=== PATIENT | female | born 2000 | race Caucasian/White ===

== ENCOUNTER 2023-09-06 17:07 | Outpatient (CLI) | payer OTHER, SELFPAY ==
--- NOTE | ~2023-09-06 | US_ITS ---
LIMITED OBSTETRIC ULTRASOUND/BIOPHYSICAL PROFILE Ordering provider: Diaz Field MD History: . LUIZ/leaking . Comparison: None. FINDINGS/impression: PRESENTATION: Vertex. PLACENTAL LOCATION: Fundal anterior. No previa. HEART RATE: 159 bpm (normal is between 110 to 160 bpm). AMNIOTIC FLUID INDEX: 9.5 cm. Largest vertical pocket is 3.5 cm. normal (LUIZ between 5-25 cm in from 20-35 weeks gestation is considered normal). OTHER: Maternal ovaries not visualized. Reviewed, dictated and finalized at location A.
[2023-09-06 17:53] VITALS: BMI 26.6
--- NOTE | 2023-09-06 17:54 | OBADM ---
This patient, Diaz Chung, admitted to the OB room OB Post 115 for observation. Patient/family oriented to hospital policies and general routines including ID bracelet, bed and alarms, visiting hours, pain management, procedures, bathroom and other care routines, personal items, smoking policy, room service/diet, and visiting hours. Patient/Family are encouraged to report perceived risks to care and to ask questions if they do not understand what they are told or what they should do.
--- NOTE | 2023-09-06 17:56 | PC.NURSE ---
[address] bell to do ROM plus
--- NOTE | 2023-09-06 18:17 | PC.NURSE ---
[address] bell ROM + neg LUIZ ordered
--- NOTE | 2023-09-06 20:12 | PC.NURSE ---
Spoke with Dr Field over the phone. Reported patients LUIZ ultrasound results. Patient is ok to discharge.
== END 2023-09-06 20:15 | disposition home or self-care (01) ==
LOC: ANHOBOP 17:16 → ANHOBPP 17:18
PROVIDERS: PCP Nurse Practitioner Family; Visit Provider Obstetrics & Gynecology
DX: Z34.90 Encounter for supervision of normal pregnancy, unspecified, unspecified trimester (principal); Z3A.00 Weeks of gestation of pregnancy not specified
CPT/HCPCS: 76815; 84112; 99199

== ENCOUNTER 2023-11-25 12:31 | Outpatient (CLI) | payer OTHER, SELFPAY ==
[2023-11-25 13:01] LABS: Basophils Absolute Auto 0.1 K/mm3 (0.0-0.1); Basophils Percent Auto 0.8 % (0.2-1.2); Eosinophils Absolute Auto 0.1 K/mm3 (0-0.3); Eosinophils Percent Auto 0.8 % (0-4.4); Hematocrit 33.5 % (37.0-47.0); Hemoglobin 11.2 g/dL (12.0-15.0); Immature Granulocyte Absolute 1.24 K/mm3 (0.00-0.031); Immature Granulocyte Percent A 7.8 % (0-0.5); Immature Platelet Fraction Pct 4.8 % (0.9-11.2); Lymphocytes Absolute Auto 2.38 K/mm3 (0.9-3.2); Mean Corpuscular HGB Conc 33.4 g/dl (32-36); Mean Corpuscular Hemoglobin 31.5 pg (26-34); Mean Corpuscular Volume 94.1 fl (80-100); Monocytes Absolute Auto 1.2 K/mm3 (0.1-0.6); Monocytes Percent Auto 7.2 % (2.6-8.5); Neutrophils Absolute Auto 10.9 K/mm3 (1.3-6.7); Neutrophils Percent Auto 68.4 % (45.5-73.1); Platelet Count Result 300 k/mm3 (150-375); Red Blood Count 3.56 M/mm3 (4.2-5.4); Red Cell Distribution Width 14.1 % (11.5-14.5); White Blood Count 15.9 K/mm3 (4.5-10.0)
[2023-11-25 13:08] LABS: Add Urine Microscopic? NO; Appearance Urine Clear (Clear); Bilirubin Urine Negative (Negative); Blood Urine Negative (Negative); Color Urine Yellow (Yellow); Glucose Urine UA Negative (Negative); Ketones Urine Negative (Negative); Leukocyte Esterase Ur Negative LEU/UL (Negative); Nitrate Urine Negative (Negative); Protein Urine Negative (Negative); Specific Grav Ur 1.003 (1.001-1.035); Urobilinogen Urine 0.2 mg/dL (<2.0); pH Urine 7.5 (5.0-9.0)
[2023-11-25 13:12] LABS: Creatinine Urine 8.4 mg/dL; Total Protein Urine Random 13 mg/dL; Ur Ttl Prot Creatinine Ratio 1.55 mg/mg (0-0.20)
[2023-11-25 13:16] LABS: Alanine Aminotransferase 22 U/L (6-35); Albumin Level 3.6 g/dL (3.5-5.1); Alkaline Phosphatase 87 U/L (38-126); Anion Gap 12 mmol/L (4-12); Aspartate Amino Transferase 35 U/L (14-36); Bilirubin,Total 0.4 mg/dL (0.2-1.3); Blood Urea Nitrogen 5 mg/dL (7-17); Calcium 9.3 mg/dL (8.4-10.2); Carbon Dioxide 17 mmol/L (22-30); Chloride 104 mmol/L (98-107); Estimated Glomerular Filt Rate > 60; Glucose 94 mg/dL (65-110); Potassium 3.9 mmol/L (3.4-5.0); Sodium 133 mmol/L (137-145); Uric Acid 2.7 mg/dL (2.5-7.5)
[2023-11-25 13:18] VITALS: BP 114/72; PULSE 105
[2023-11-25 13:30] VITALS: BP 98/57; PULSE 112
[2023-11-25 13:30] LABS: Platelet Estimate Adequate (Adequate); Schistocytes None Seen
[2023-11-25 13:45] VITALS: BP 118/72; PULSE 104
--- NOTE | 2023-11-25 13:46 | PC.NURSE ---
Dr Field notified of PIH lab, swelling, and BP's Ok to dc home, patient to start 24 hour urine.
[2023-11-25 13:56] VITALS: BMI 32.1
== END 2023-11-25 13:56 | disposition home or self-care (01) ==
LOC: ANHOBOP 12:36 → ANHOBPP 12:38
PROVIDERS: PCP Nurse Practitioner Family; Visit Provider Obstetrics & Gynecology
DX: O13.9 Gestational [pregnancy-induced] hypertension without significant proteinuria, unspecified trimester (principal)
CPT/HCPCS: 36415; 59025; 80053; 81003; 82570; 84156; 84550; 85025; 85055; 99199

== ENCOUNTER 2023-11-26 12:57 | Outpatient (CLI) | payer OTHER, SELFPAY ==
[2023-11-26 13:43] VITALS: BMI 32.1
[2023-11-26 14:25] LABS: Collection Time Urine 24 HOURS; Total Volume 24 Hour Urine 2200 ml
[2023-11-26 14:26] LABS: Patient Weight 169 Lbs; Total Volume 24 Hour Urine 2200 ml
[2023-11-26 15:05] LABS: Total Protein Urine 24 Hr 308 mg/24hr (28-141); Total Protein Urine Random 14 mg/dL
[2023-11-26 15:07] LABS: Creatinine Clearance Urine 216.6 ml/min (75-125); Creatinine Urine 43.1 mg/dL
== END 2023-11-26 12:58 | disposition home or self-care (01) ==
LOC: ANHOBOP 13:23
PROVIDERS: PCP Nurse Practitioner Family; Visit Provider Obstetrics & Gynecology
DX: O13.9 Gestational [pregnancy-induced] hypertension without significant proteinuria, unspecified trimester (principal)
CPT/HCPCS: 81050; 82575; 84156

== ENCOUNTER 2023-12-17 11:35 | Outpatient (CLI) | payer OTHER, SELFPAY ==
[2023-12-17 12:15] VITALS: BP 111/64; PULSE 113
[2023-12-17 12:27] LABS: OBXCEM ROM Plus Negative (Negative)
[2023-12-17 12:46] LABS: Add Urine Microscopic? NO; Appearance Urine Clear (Clear); Bilirubin Urine Negative (Negative); Blood Urine Negative (Negative); Color Urine Yellow (Yellow); Glucose Urine UA Negative (Negative); Ketones Urine Negative (Negative); Leukocyte Esterase Ur Negative LEU/UL (Negative); Nitrate Urine Negative (Negative); Protein Urine Negative (Negative); Specific Grav Ur 1.013 (1.001-1.035); Urobilinogen Urine 0.2 mg/dL (<2.0); pH Urine 7.5 (5.0-9.0)
[2023-12-17 12:57] VITALS: BP 111/64; PULSE 100
== END 2023-12-17 13:00 | disposition home or self-care (01) ==
LOC: ANHOBOP 11:49 → ANHOBPP 11:50
PROVIDERS: PCP Nurse Practitioner Family; Visit Provider Obstetrics & Gynecology
DX: O42.90 Premature rupture of membranes, unspecified as to length of time between rupture and onset of labor, unspecified weeks of gestation (principal); Z3A.00 Weeks of gestation of pregnancy not specified
CPT/HCPCS: 59025; 81003; 84112; 99199

== ENCOUNTER 2023-12-20 14:04 | Observation (INO) | payer OTHER, SELFPAY ==
--- NOTE | ~2023-12-20 | US_ITS ---
RIGHT LOWER EXTREMITY VENOUS ULTRASOUND Ordering provider: Diaz Field MD History: . right popliteal pain, right calf pain . Comparison: None. FINDINGS: --COMMON FEMORAL: Patent and free of thrombus. Normal compressibility, phasic flow and augmentation. --PROXIMAL SUPERFICIAL FEMORAL: Patent and free of thrombus. Normal compressibility, phasic flow and augmentation. --DISTAL SUPERFICIAL FEMORAL: Patent and free of thrombus. Normal compressibility, phasic flow and au gmentation. --POPLITEAL: Patent and free of thrombus. Normal compressibility, phasic flow and augmentation. --POSTERIOR TIBIAL: Patent and free of thrombus. Normal compressibility, phasic flow and augmentation . IMPRESSION: Negative right lower extremity venous US. No deep vein thrombosis. Reviewed, dictated and finalized at location A.
--- NOTE | 2023-12-20 14:04 | OBADM ---
This patient, Diaz Chung, admitted to the OB room OB Post 116 for observation. Patient/family oriented to hospital policies and general routines including ID bracelet, bed and alarms, visiting hours, pain management, procedures, bathroom and other care routines, personal items, smoking policy, room service/diet, and visiting hours. Patient/Family are encouraged to report perceived risks to care and to ask questions if they do not understand what they are told or what they should do.
--- NOTE | 2023-12-20 14:20 | PC.NURSE ---
pt has complaints of spotting and swelling. Pt showed RN toilet paper that she wiped with earlier. A dime size pink tinged spot on toilet paper was observed. Pt also complains of increased swelling. Pt has +1-2 swelling in her feet. Pt reports gaining about 45 lbs during this . pt also complains of right popliteal pain that wakes her up at night that she describes as a cramping.
[2023-12-20 14:36] VITALS: BP 107/58; PULSE 123
[2023-12-20 14:42] LABS: Hematocrit 33.3 % (37.0-47.0); Hemoglobin 10.9 g/dL (12.0-15.0); Mean Corpuscular HGB Conc 32.7 g/dl (32-36); Mean Corpuscular Hemoglobin 30.3 pg (26-34); Mean Corpuscular Volume 92.5 fl (80-100); Platelet Count Result 299 k/mm3 (150-375); Red Cell Distribution Width 14.1 % (11.5-14.5); White Blood Count 15.1 K/mm3 (4.5-10.0)
[2023-12-20 14:44] LABS: Add Urine Microscopic? NO; Appearance Urine Clear (Clear); Bilirubin Urine Negative (Negative); Blood Urine Negative (Negative); Color Urine Yellow (Yellow); Glucose Urine UA Negative (Negative); Ketones Urine Negative (Negative); Leukocyte Esterase Ur Negative LEU/UL (Negative); Nitrate Urine Negative (Negative); Protein Urine Negative (Negative); Specific Grav Ur 1.009 (1.001-1.035); Urobilinogen Urine 0.2 mg/dL (<2.0); pH Urine 7.5 (5.0-9.0)
[2023-12-20 14:45] VITALS: BP 122/69; PULSE 102
--- NOTE | 2023-12-20 14:52 | PC.NURSE ---
Dr. Field notified of pt having right leg pain, swelling and spotting. CMP results called to MD. Order received for lower extremity dopplers and call results.
[2023-12-20 14:54] LABS: Alanine Aminotransferase 13 U/L (6-35); Albumin Level 3.6 g/dL (3.5-5.1); Alkaline Phosphatase 102 U/L (38-126); Anion Gap 8 mmol/L (4-12); Aspartate Amino Transferase 18 U/L (14-36); Bilirubin,Total 0.2 mg/dL (0.2-1.3); Blood Urea Nitrogen 6 mg/dL (7-17); Calcium 9.2 mg/dL (8.4-10.2); Carbon Dioxide 20 mmol/L (22-30); Chloride 104 mmol/L (98-107); Estimated Glomerular Filt Rate > 60; Glucose 82 mg/dL (65-110); Potassium 3.6 mmol/L (3.4-5.0); Sodium 132 mmol/L (137-145); Uric Acid 2.8 mg/dL (2.5-7.5)
[2023-12-20 15:00] VITALS: BP 117/72; PULSE 120
[2023-12-20 15:05] LABS: Creatinine Urine 40.4 mg/dL; Total Protein Urine Random 12 mg/dL
[2023-12-20 15:10] VITALS: BP 107/58; PULSE 115
--- NOTE | 2023-12-20 15:25 | PC.NURSE ---
Dr. Field called with results. okay with pt going home and increasing her water intake as well as magnesium supplement.
[2023-12-20 15:34] LABS: Band Neutrophils Percent 2 % (0-6); Eosinophils Absolute Manual 0.15 K/mm3 (0.02-0.50); Eosinophils Percent Manual 1 % (0-4); Lymphocytes Absolute Manual 3.02 K/mm3 (1.1-4.5); Monocytes Absolute Manual 1.51 K/mm3 (0.1-0.90); Monocytes Percent Manual 10 % (3-9); Neutrophils Absolute Manual 10.41 K/mm3 (1.7-7.2); Neutrophils Percent Manual 67 % (46-73); Platelet Estimate Adequate (Adequate); Schistocytes None Seen; Total Cells Counted 100
--- NOTE | 2023-12-23 12:14 | P.PNOB_ITS ---
OB - Triage/Final Diagnosis Visit Information Comments/Additional reasons for admission: I have assessed the risk for this patient, Diaz Chung, and determined that she would benefit from observation care. Evaluation Laboratory results: Laboratory Tests 12/20/23 12/20/23 14:31 14:32 WBC 15.1 H RBC 3.60 L Hgb 10.9 L Hct 33.3 L MCV 92.5 MCH 30.3 MCHC 32.7 RDW 14.1 Plt Count 299 MPV 10.0 Immature Gran % (Auto) Not Reportable Neut % (Auto) Not Reportable Lymph % (Auto) Not Reportable [place] % (Auto) Not Reportable Eos % (Auto) Not Reportable Baso % (Auto) Not Reportable Lymph # (Auto) Not Reportable [place] # (Auto) Not Reportable Eos # (Auto) Not Reportable Baso # (Auto) Not Reportable Abs Immat Gran (auto) Not Reportable Absolute Neuts (auto) Not Reportable Absolute Nucleated RBC Not Reportable Total Counted 100 Neutrophils % (Manual) 67 Band Neutrophils % 2 Lymphocytes % (Manual) 20.0 Monocytes % (Manual) 10 H Eosinophils % (Manual) 1 Nucleated RBC % Not Reportable Abs Neuts (Manual) 10.41 H Abs Lymphs (Manual) 3.02 Abs Monocytes (Manual) 1.51 H Absolute Eos (Manual) 0.15 Platelet Estimate Adequate Schistocytes None seen Sodium 132 L Potassium 3.6 Chloride 104 Carbon Dioxide 20 L Anion Gap 8 BUN 6 L Creatinine 0.40 L Estim Creat Clear Calc Not Reportable Estimated GFR > 60 Glucose 82 Uric Acid 2.8 Calcium 9.2 Total Bilirubin 0.2 AST 18 ALT 13 Alkaline Phosphatase 102 Total Protein 7.0 Albumin 3.6 Urine Color Yellow Urine Appearance Clear Urine pH 7.5 Ur Specific [place] 1.009 Urine Protein Negative Urine Glucose (UA) Negative Urine Ketones Negative Ur Blood (Man) Negative Urine Nitrate Negative Urine Bilirubin Negative Urine Urobilinogen 0.2 Leukocyte Esterase Rfl Negative U Random Total Protein 12 Urine Creatinine 40.4 Protein/Creat Ratio 2 0.30 H Final Diagnosis (1) Right leg pain: Code(s): M79.604 - Pain in right leg Status: Acute
== END 2023-12-20 15:38 | disposition home or self-care (01) ==
PROVIDERS: Admitting Provider Obstetrics & Gynecology; PCP Nurse Practitioner Family; Visit Provider Obstetrics & Gynecology
DX: O26.893 Other specified pregnancy related conditions, third trimester (principal); M79.604 Pain in right leg; Z3A.33 33 weeks gestation of pregnancy
CPT/HCPCS: 36415; 59025; 80053; 81003; 82570; 84156; 84550; 85025; 93971; G0378; G0379

== ENCOUNTER 2024-01-03 18:29 | Outpatient (CLI) | payer OTHER, SELFPAY ==
[2024-01-03 19:17] VITALS: BMI 34.0
--- NOTE | 2024-01-03 19:17 | OBADM ---
This patient, Diaz Chung, admitted to the OB room Labor/Delivery/Recovery 103 for clinical. Patient/family oriented to hospital policies and general routines including ID bracelet, bed and alarms, visiting hours, pain management, procedures, bathroom and other care routines, personal items, smoking policy, room service/diet, and visiting hours. Patient/Family are encouraged to report perceived risks to care and to ask questions if they do not understand what they are told or what they should do.
[2024-01-03 19:25] VITALS: BP 118/59; PULSE 118
[2024-01-03 19:25] LABS: OBXCEM ROM Plus Negative (Negative)
== END 2024-01-03 19:30 | disposition home or self-care (01) ==
LOC: ANHOBOP 19:10 → ANHLDR 01-10 06:56
PROVIDERS: Advanced Practice Midwife; PCP Nurse Practitioner Family; Visit Provider Obstetrics & Gynecology
DX: O42.90 Premature rupture of membranes, unspecified as to length of time between rupture and onset of labor, unspecified weeks of gestation (principal); Z3A.00 Weeks of gestation of pregnancy not specified
CPT/HCPCS: 84112; 99199

== ENCOUNTER 2024-01-14 14:54 | Outpatient (RCR) | payer OTHER, SELFPAY ==
[2024-01-14 17:40] VITALS: BP 126/73; PULSE 106
== END 2024-02-26 17:53 | disposition home or self-care (01) ==
LOC: ANHOBOP 14:54
PROVIDERS: PCP Nurse Practitioner Family; Visit Provider Obstetrics & Gynecology
DX: O36.8130 Decreased fetal movements, third trimester, not applicable or unspecified (principal); Z3A.36 36 weeks gestation of pregnancy
CPT/HCPCS: 59025

== ENCOUNTER 2024-01-19 21:18 | Outpatient (RCR) | payer OTHER, SELFPAY ==
[2024-01-19] VITALS (12 sets, daily range): BP systolic 119–131; BP diastolic 64–69; PULSE 106–126; O2SAT 97–99
== END 2024-02-26 17:53 | disposition home or self-care (01) ==
LOC: ANHLDR 21:18
PROVIDERS: PCP Nurse Practitioner Family; Visit Provider Obstetrics & Gynecology
DX: O36.8190 Decreased fetal movements, unspecified trimester, not applicable or unspecified (principal)
CPT/HCPCS: 59025

== ENCOUNTER 2024-01-21 12:59 | Observation (INO) | payer OTHER, SELFPAY ==
[2024-01-21] VITALS (7 sets, daily range): BP systolic 124; BP diastolic 81; PULSE 116–125; O2SAT 95–98
--- NOTE | 2024-01-21 12:59 | OBADM ---
This patient, Diaz Chung, admitted to the OB room Labor/Delivery/Recovery 107 for observation. Patient/family oriented to hospital policies and general routines including ID bracelet, bed and alarms, visiting hours, pain management, procedures, bathroom and other care routines, personal items, smoking policy, room service/diet, and visiting hours. Patient/Family are encouraged to report perceived risks to care and to ask questions if they do not understand what they are told or what they should do.
--- NOTE | 2024-01-21 13:35 | ECG_ITS ---
Test Date: 2024-01-21 13:52:57 Measurements Intervals [place] Rate: 111 P: 42 NC: 129 QRS: 58 QRSD: 88 T: -1 QT: 313 QTc: 425 Interpretive Statements SINUS TACHYCARDIA NONSPECIFIC ST ABNORMALITY ABNORMAL ECG No previous ECG available for comparison Electronically Signed On 01-22-2024 10:12:57 CDT by Manuel Gao M.D.
[2024-01-21 13:40] LABS: Add Urine Microscopic? YES; Appearance Urine Turbid (Clear); Bacteria Urine Rare /hpf; Bilirubin Urine Negative (Negative); Blood Urine Negative (Negative); Color Urine Yellow (Yellow); Glucose Urine UA Negative (Negative); Ketones Urine Trace mg/dL (Negative); Leukocyte Esterase Ur 1+ LEU/UL (Negative); Nitrate Urine Negative (Negative); Non Pathogenic Casts 0-2; Protein Urine Trace mg/dL (Negative); RBC Urine 0-2 /hpf (0-2); Specific Grav Ur 1.022 (1.001-1.035); Squamous Epithelial Cell Urine Moderate /hpf (Few); Urobilinogen Urine 0.2 mg/dL (<2.0); pH Urine 7.5 (5.0-9.0)
--- NOTE | 2024-01-25 09:17 | PM.OBTRLD ---
OB - Triage/Final Diagnosis Visit Information Comments/Additional reasons for admission: I have assessed the risk for this patient, Diaz Chung, and determined that she would benefit from observation care. Evaluation Laboratory results: Laboratory Tests 01/21/24 13:30 Urine Color Yellow Urine Appearance Turbid H Urine pH 7.5 Ur Specific [place] 1.022 Urine Protein Trace Urine Glucose (UA) Negative Urine Ketones Trace H Ur Blood (Man) Negative Urine Nitrate Negative Urine Bilirubin Negative Urine Urobilinogen 0.2 Leukocyte Esterase Rfl 1+ H Urine RBC 0-2 Urine WBC 6-10 H Ur Squamous Epith Cells Moderate Urine Bacteria Rare Urine Casts 0-2 Final Diagnosis (1) Back pain affecting : Code(s): O99.891 - Other specified diseases and conditions complicating ; M54.9 - Dorsalgia, unspecified Status: Acute
== END 2024-01-21 14:40 | disposition home or self-care (01) ==
PROVIDERS: Admitting Provider Obstetrics & Gynecology; PCP Nurse Practitioner Family; Visit Provider Obstetrics & Gynecology
DX: O99.891 Other specified diseases and conditions complicating pregnancy (principal); M54.9 Dorsalgia, unspecified; Z3A.37 37 weeks gestation of pregnancy
CPT/HCPCS: 81001; 87086; 93005; G0378; G0379

== ENCOUNTER 2024-01-26 00:09 | Inpatient (IN) | payer OTHER, SELFPAY ==
[2024-01-26] VITALS (201 sets, daily range): BP systolic 67–197; BP diastolic 33–174; PULSE 62–183; RESP 16–20; TEMP 36.6–38; O2SAT 93–100; BMI 35.4
[2024-01-26 01:27] LABS: Basophils Absolute Auto 0.1 K/mm3 (0.0-0.1); Basophils Percent Auto 0.4 % (0.2-1.2); Eosinophils Absolute Auto 0.1 K/mm3 (0-0.3); Eosinophils Percent Auto 0.7 % (0-4.4); Hematocrit 34.7 % (37.0-47.0); Hemoglobin 11.3 g/dL (12.0-15.0); Immature Granulocyte Absolute 0.78 K/mm3 (0.00-0.031); Immature Granulocyte Percent A 4.4 % (0-0.5); Lymphocytes Absolute Auto 2.08 K/mm3 (0.9-3.2); Lymphocytes Percent Auto 11.7 % (18.3-44.2); Mean Corpuscular HGB Conc 32.6 g/dl (32-36); Mean Corpuscular Hemoglobin 28.7 pg (26-34); Mean Corpuscular Volume 88.1 fl (80-100); Mean Platelet Volume 10.3 fl (7.4-10.4); Monocytes Absolute Auto 1.3 K/mm3 (0.1-0.6); Monocytes Percent Auto 7.3 % (2.6-8.5); Neutrophils Absolute Auto 13.4 K/mm3 (1.3-6.7); Neutrophils Percent Auto 75.5 % (45.5-73.1); Nucleated Red Blood Cells Perc 0.1 % (0.0-0.2); Platelet Count Result 338 k/mm3 (150-375); Red Blood Count 3.94 M/mm3 (4.2-5.4); Red Cell Distribution Width 14.9 % (11.5-14.5); White Blood Count 17.8 K/mm3 (4.5-10.0)
--- NOTE | 2024-01-26 01:42 | LDADM ---
This patient, Diaz Chung, was admitted to Labor/Delivery/Recovery 104 on 01/26/24 at 00:09. Plans for labor, pain management and were discussed with patient. Patient/family oriented to hospital policies and general routines including ID bracelet, bed and alarms, visiting hours, pain management, procedures, bathroom and other care routines, personal items, smoking policy, room service/diet and guest tray routines, security routines, and visiting hours. Patient/Family are encouraged to report perceived risks to care and to ask questions if they do not understand what they are told or what they should do. See OBIX for further documentation.
[2024-01-26 01:55] LABS: Rapid Plasma Reagin Non-Reactive (NonReactive)
[2024-01-26] MEDS: miSOPROStol 25 MCG TABLET 50 MCG BUCCAL (01:56)
[2024-01-26 02:25] LABS: HIV 1/2 Ab P24 Ag Result Negative (Negative)
[2024-01-26] MEDS: LACTATED RINGERS 1,000 ML 999 ML IV CONT (06:26)
[2024-01-26] MEDS: fentaNYL CITRATE INJ (*CRX) 100 MCG/2 ML VIAL 50 MCG IV PUSH (06:57)
--- NOTE | 2024-01-26 07:12 | P.PNAN_ITS ---
Anes - Eval Pre Procedure Procedure: Labor epidural Date/Time: 01/26/24 07:12 Surgeon: Emir Preop Diagnosis: Pain during labor Pre Op Diagnosis: Rom Patient Data Age: 23 Gender: F Height: 1.55 m Weight: 85 kg Last Vital Signs Temp 36.8 C 01/26/24 06:00 Pulse 132 H 01/26/24 07:00 BP 127/77 01/26/24 07:00 Pulse Ox 95 01/26/24 07:12 O2 Del Method Room Air 01/26/24 06:31 Allergies Allergy/AdvReac Type Severity Reaction Status Date / Time No Known Allergies Allergy Verified 01/26/24 06:22 Home Medications Medication Instructions Recorded Confirmed Type prenat.vits,brionna,gqx-chfu-xhcoz 1 tablet PO DAILY 01/11/24 01/26/24 History Laboratory Tests 01/26/24 01:19 WBC 17.8 H K/mm3 (4.5-10.0) RBC 3.94 L M/mm3 (4.2-5.4) Hgb 11.3 L g/dL (12.0-15.0) Hct 34.7 L % (37.0-47.0) MCV 88.1 fl (80-100) MCH 28.7 pg (26-34) MCHC 32.6 g/dl (32-36) RDW 14.9 H % (11.5-14.5) Plt Count 338 k/mm3 (150-375) MPV 10.3 fl (7.4-10.4) Immature Gran % (Auto) 4.4 H % (0-0.5) Neut % (Auto) 75.5 H % (45.5-73.1) Lymph % (Auto) 11.7 L % (18.3-44.2) [place] % (Auto) 7.3 % (2.6-8.5) Eos % (Auto) 0.7 % (0-4.4) Baso % (Auto) 0.4 % (0.2-1.2) Lymph # (Auto) 2.08 K/mm3 (0.9-3.2) [place] # (Auto) 1.3 H K/mm3 (0.1-0.6) Eos # (Auto) 0.1 K/mm3 (0-0.3) Baso # (Auto) 0.1 K/mm3 (0.0-0.1) Abs Immat Gran (auto) 0.78 H K/mm3 (0.00-0.031) Absolute Neuts (auto) 13.4 H K/mm3 (1.3-6.7) Absolute Nucleated RBC 0.020 H K/mm3 (0.0-0.012) Nucleated RBC % 0.1 % (0.0-0.2) RPR Non-reactive (NonReactive) HIV 1&2 Ab/P24 Ag 4thGn Negative (Negative) Blood Type O Positive Antibody Screen Negative Patient hx anesthesia problems: none Family hx anesthesia problems: none Results Review: All pre-operative results and documents have been reviewed as part of the pre- operative evaluation. [facility] [place] Social History Social History Smoking status: Former smoker Tobacco type: e-cigarettes/vaping Smoking end date: 05/06/23 Substance use: never Do You Feel Safe in your Home?: Yes Lack of Transportation: No Lack of Food: Never True Current Housing: I Have Housing Concerned About Future Housing: No Difficulty Paying Gas/Electric Bills: No Difficulty Paying for Meds: No Currently Unemployed: No Education: High School Diploma/GED Difficulty w/ Childcare or Family Care: No Spiritual care concerns: No Exam Day of Procedure 01/26/24 07:12 Patient weight: obese Heart: regular rate and rhythm Lungs: clear to auscultation and normal air movement Airway: Mallampati scale class II Neurological: alert and oriented
[2024-01-26] MEDS: LACTATED RINGERS 1,000 ML 125 ML IV CONT ×2 (08:03→13:12)
--- NOTE | 2024-01-26 08:06 | WPDOBADMIT ---
Obstetrics - Admit Note Admission Note: record reviewed. No pertinent additions to the history and/or any subsequent changes in the physical findings that are not consistent with the expected course of the were found. Patient admitted for SROM at 2330. FHR category I, patient reports painful contractions. Requesting epidural. Pitocin per protocol, s/p cytotec x1. Additions to the history and/or subsequent changes in the physical findings follow. None.
[2024-01-26] MEDS: diphenhydrAMINE HCl INJ 50 MG/ML VIAL 25 MG IV PUSH (10:17)
[2024-01-26] MEDS: AMPICILLIN 2 GM/NS 100 ML 2 GM/100 ML BAG IVPB (11:14)
[2024-01-26] MEDS: ACETAMINOPHEN 500 MG TABLET 1000 MG PO (11:14)
[2024-01-26] MEDS: OXYTOCIN 30 UNITS/NS 500 ML 30 UNITS/500 ML BAG 999 UNITS IV CONT (13:53)
--- NOTE | 2024-01-26 14:06 | PM.OBPRVD ---
OB - Vaginal Delivery Note Procedure Delivery date: 01/26/24 Induction method: None Delivery augmentation: Other Delivery monitor: External FHT and External Uterine Route of delivery: Episiotomy description: None Laceration Description: None Specimen: No Quantitative Blood Loss (ml): 100 Anesthesia type: Epidural Disposition: Floor Complications: No immediate complications Narrative: See H&P and notes for details on patient's admission and labor. She progressed to complete cervical dilation and at the appropriate time began pushing. With adequate expulsive efforts by the mother, the baby's head was delivered without difficulty. Nuchal cord was present x1 and delivered through. The baby's left shoulder was anterior and delivered under the pubic symphysis without difficulty. The posterior shoulder and the rest of the baby delivered without difficulty. The umbilical cord was doubly clamped and cut after 60 seconds of delayed cord clamping. Care of the infant was then assumed by the nursing staff. Baby Date of : 01/26/24 Gestational Age by Date: 38 gender: Female presentation: vertex position: Right Occiput Anterior Placenta delivery description: Expressed Cord Vessel Description: 3 Vessels, Nuchal Cord and Delayed Cord Clamping
[2024-01-26] MEDS: OXYTOCIN 30 UNITS/NS 500 ML 30 UNITS/500 ML BAG 125 UNITS IV CONT (14:28)
[2024-01-26] MEDS: WITCH HAZEL 40 PADS 1 PAD TOPICAL (16:33)
[2024-01-26] MEDS: BENZOCAINE 20% AER SPR (*SP) 56 GM CAN 1 SPRAY TOPICAL (16:33)
--- NOTE | 2024-01-26 16:55 | PC.NURSE ---
Patient transferred to post room #286 via wheelchair. Support person present. Oriented to unit, room, information board, rooming in, admission packet and security measures. Patient verbalizes understanding.
[2024-01-26] MEDS: IBUPROFEN 600 MG TABLET PO (19:02)
[2024-01-26] MEDS: ACETAMINOPHEN 325 MG TABLET 650 MG PO (19:03)
--- NOTE | 2024-01-26 19:40 | PC.NURSE ---
1939- pt voided 700mls urine without difficulty
--- NOTE | 2024-01-27 05:06 | PM.OBPNVD ---
OB - PN: Subj Subjective Date/time seen: 01/27/24 05:06 Interval history: PPD#1 Doing well, pain well controlled Tolerating general diet Voiding without issue , latching well OB - PN: Obj Data Labs 01/26/24 01:19 OB - PN A/P Assessment and Plan (1) (spontaneous vaginal delivery): Code(s): O80 - Encounter for full-term uncomplicated delivery Status: Acute Plan day: 1 Plan: routine care Time Spent With Patient Time: Total time spent is greater than 50% in coordination of care (as documented) at patient's floor/unit and/or counseling patient: Review of Systems Review of Systems: All systems reviewed & are unremarkable except as noted in HPI and below Exam Const: General: comfortable and no acute distress Orientation/consciousness: patient oriented x3 Resp: Effort & Inspection: normal respiratory effort
[2024-01-27 05:58] LABS: Hematocrit 35.6 % (37.0-47.0); Hemoglobin 11.2 g/dL (12.0-15.0)
[2024-01-27 07:25] VITALS: BP 121/77; PULSE 117; RESP 16; TEMP 37.3; O2SAT 99
[2024-01-27] MEDS: IBUPROFEN 600 MG TABLET PO (08:28)
[2024-01-27] MEDS: MULTIVIT/MIN/PREN/FOL AC/IRON TABLET 1 TAB PO (08:28)
[2024-01-27] MEDS: DOCUSATE SODIUM 100 MG CAPSULE PO ×2 (08:28→17:35)
[2024-01-27 11:52] VITALS: BP 106/67; PULSE 98; RESP 16; TEMP 36.3; O2SAT 98
--- NOTE | 2024-01-27 14:17 | PC.NURSE ---
1330. Introductions were made, then consulted with patient to assess needs related to . Mother led the conversation with her?plans to feed?her infant and the?experience so far. Mother explains that it is her intent to exclusively breastfeed her . Encouraged understanding of the benefits of skin to skin (demonstrating unwrapping infant and placing upright on her chest), stimulating with massage touch, changing positions to encourage wakefulness, how to watch for early feeding cues, responsive feeding, feeding on demand (aiming for 8-12 times in 24 hours, about every 2-3 hours), milk production, building/maintaining a milk supply, duration of feeding, signs of adequate intake/output and how to record on the feeding sheet. Reviewed positioning and ear, shoulder, hip alignment, supporting the breast to facilitate a deep latch, asymmetrical latch (off-center), leading with the chin with a big, open, wide gape and body close to mother. Education given to the mother of how to visualize the suckling (with good rocking jaw motion), swallows (dropping of the lower jaw) and how to listen for drinking at the breast (the ka sound). was unable to maintain latch without pain to mother protecting the nipple with optimal positioning and latching. sleepy and reluctant to feed at this time, no feeding cues. Mom will do s2s and reattempt to latch infant in the next 30 min while watching for feeding cues. Reviewed comfort measures of healing with a warm, wet washcloth to rinse breast, then leave open to air-dry, good handwashing when or touching the breast/nipples to prevent infection. Mother voiced understanding of skin to skin, stimulating with massage touch, responsive feedings, hand expressed colostrum, talking to infant to encourage if it has been 2 -2.5 hours since the start of the last , to call if does not latch, or if there is discomfort with . Resources used for education were facilitated with the visual educational handouts. Parents voiced understanding of information, demonstrated learning and will call with infants next latch to an assessment and review listening for infant swallowing. Reported to primary RN.
[2024-01-27] MEDS: ACETAMINOPHEN 325 MG TABLET 650 MG PO (17:35)
--- NOTE | 2024-01-27 18:51 | WPDANLDPN2 ---
Anes-Prog Note L&D Date/Time: 01/27/24 18:51 Comfortable throughout: labor and delivery Neuraxial method: epidural Epidural/Spinal procedure site: clean & non-tender Neuro status: Neuro function grossly intact. Cardiovascular status: normal Respiratory status: normal Airway patency: baseline Mental status: baseline Post-Op hydration status: normal Vital Signs: Last Vital Signs Temp 36.3 C L 01/27/24 11:52 Pulse 98 01/27/24 11:52 Resp 16 01/27/24 11:52 BP 106/67 01/27/24 11:52 Pulse Ox 98 01/27/24 11:52 O2 Del Method Room Air 01/27/24 07:55 Pain score (VAS): 04/10 I/O: Intake & Output 01/27/24 01/27/24 01/27/24 07:59 15:59 23:59 Intake Total 240 240 Balance 240 240 Post-procedural complaints: none Patient feedback: Patient satisfied with anesthetic care.
[2024-01-27 19:50] VITALS: BP 120/70; PULSE 125; RESP 20; TEMP 37.4; O2SAT 98
[2024-01-27] MEDS: guaiFENesin/DEXTROMETHORPHAN 10 ML UDC PO (20:42)
[2024-01-27 21:39] LABS: Influenza A QL RT-PCR Negative (Negative); Influenza B QL RT-PCR Negative (Negative); SARS-CoV-2 RNA PCR Negative (Negative)
--- NOTE | 2024-01-28 07:45 | PC.NURSE ---
Introductions were made, then consulted with patient to assess needs related to . Discussed with mother her?plans to feed?her and the?experience so far. She bottle fed all night due to painful latch. Encouraged her to call for a latch check if she desires to put baby to breast any longer. Encouraged frequent pumping if she wants to continue providing breast milk to baby. Mom has a Mom Cozy pump, pumping primer handout given, patient to refer to user manual for instruction. Resources provided for inpatient and outpatient services with the feeding sheet, mom/baby guide and name/number written on the communication board. Mother voiced understanding of information and will call if there is a request for assistance. Reported to the Primary RN. Primary RN reported that mom fed a bottle at the next feeding and RN reinforced regular pumping if she wants to provide breast milk to baby.
[2024-01-28 08:35] VITALS: BP 115/71; PULSE 97; RESP 16; TEMP 36.8; O2SAT 98
[2024-01-28] MEDS: MULTIVIT/MIN/PREN/FOL AC/IRON TABLET 1 TAB PO (08:42)
[2024-01-28] MEDS: guaiFENesin/DEXTROMETHORPHAN 10 ML UDC PO (08:42)
--- NOTE | 2024-01-28 11:29 | PC.NURSE ---
Patient viewed the discharge video Mother & Baby Care, The First Two Weeks . Patient was given the opportunity and encouraged to ask questions. Patient verbalized understanding of information shared and has been given the mother/baby guide for home reference.
--- NOTE | 2024-01-28 11:52 | PM.OBPNVD ---
OB - PN: Subj Subjective Date/time seen: 01/28/24 11:52 Interval history: PPD#2 Doing well, pain well controlled Tolerating general diet Voiding without issue /bottle feeding, latching well Ready for discharge home today OB - PN: Obj Data Labs 01/27/24 05:16 Labs: Laboratory Results - last 24 hr 01/27/24 20:40 Influenza A (RT-PCR) Negative Influenza B (RT-PCR) Negative SARS-CoV-2 RNA (RT-PCR) Negative OB - PN A/P Assessment and Plan (1) (spontaneous vaginal delivery): Code(s): O80 - Encounter for full-term uncomplicated delivery Status: Acute Plan day: 2 Plan: routine care and discharge home Time Spent With Patient Time: Total time spent is greater than 50% in coordination of care (as documented) at patient's floor/unit and/or counseling patient: Review of Systems Review of Systems: All systems reviewed & are unremarkable except as noted in HPI and below Exam Const: General: comfortable and no acute distress Orientation/consciousness: patient oriented x3 Resp: Effort & Inspection: normal respiratory effort
--- NOTE | 2024-01-28 11:54 | P.DS_ITS ---
DS: Admitting Diagnosis Discharge Date 01/28/24 Admitting Diagnosis SROM DS: Discharge Diagnosis Discharge Diagnosis (1) (spontaneous vaginal delivery): Code(s): O80 - Encounter for full-term uncomplicated delivery Status: Acute OB - DS: Summary OB Procedures : None OB Procedures Intrapartum: Spontaneous Vag Delivery OB Procedures: : None Peripartum Data Laceration Description: None Episiotomy description: None Time Spent with Patient Time attestation: Total time spent providing and/or coordinating discharge services: DS: Data Data Completed and Pending Labs on day of discharge: Labs from last 24 hours 01/27/24 20:40 Influenza A (RT-PCR) Negative Influenza B (RT-PCR) Negative SARS-CoV-2 RNA (RT-PCR) Negative Discharge Plan Discharge Attending physician on discharge: Diaz Field Discharging Clinician: Diaz Field Patient Disposition: Home, Self-Care Activity: may shower, as tolerated and pelvic rest Diet: as tolerated Discharge Instructions: Education: Mom and Baby Guide Given to: Mother Follow-Up: Call your delivering provider's office for an appointment to be seen in: 4 Weeks Mom and baby should come to the [facility] for the follow-up appointment. Appointment Date/Time: January 29, 2024 at 9:00 am What to expect at your follow-up visit: Physical Assessment Call [phone] if you are unable to keep your appointment time. BREAST CARE: * Wear a snug supportive bra. * For engorgement discomfort: Breast Feeding: * Apply warm moist washcloths * Express milk as needed to relieve engorgement * Wear loose clothing Bottle Feeding: * May apply ice packs * For sore nipples: * Identify correct latch-on * Apply warm moist washcloths before and after nursing * Air dry nipples after nursing * May apply Lansinoh cream to nipples EPISIOTOMY/PERINEAL CARE: * Until bleeding stops, use your jer bottle after urinating * Change your pad frequently throughout the day * No tub baths until seen by your physician - You may shower ACTIVITY: * Rest as much as possible. * Do not exercise or lift anything heavier than your baby (such as laundry or other children.) * Avoid stairs or driving as much as possible. * Do not put anything into the vagina. No douching, tampons, or sexual activity until seen by physician. NOTIFY PHYSICIAN IF YOU HAVE ANY QUESTIONS OR IF ANY OF THE FOLLOWING SYMPTOMS OCCUR: * If your episiotomy or incision becomes red, swollen, or more painful than what you have experienced in the hospital. * If your vaginal bleeding becomes foul smelling. * If your vaginal bleeding becomes more heavy than a period or if your bleeding changes from pink to bright red. However, you may pass an occasional [place]- sized clot once or twice for the first week . * If you experience a sharp, shooting pain in you calves. * If you discover a hard, reddened area on your breast or if you experience flu- like symptoms. DIET: * Eat regular, well-balanced meals. * Drink plenty of fluids daily. If , drink to thirst. Patient Instructions: Antibiotic Form Stand Alone Forms: General Discharge Information Follow-up/Referrals: Diaz Field MD [Physician] - 4 Weeks Discharge Medications: New docusate sodium 100 mg Capsule 100 mg PO BID PRN (Reason: Constipation) Qty: 60 0RF ibuprofen 600 mg Tablet 600 mg PO Q6H PRN (Reason: Cramping) Qty: 30 0RF Continued prenat.vits,brionna,wtc-fzzj-itsqt Tablet 1 tablet PO DAILY Date of admission: 01/26/24 00:09 Primary Care Provider: Genesis Angulo Admitting Provider: Diaz Field Attending physician on admission: Diaz Field Condition: Stable
[2024-01-29 09:11] VITALS: BP 125/75; PULSE 102; RESP 18; TEMP 37.2; O2SAT 100
== END 2024-01-28 13:10 | disposition home or self-care (01) | DRG 806 ==
LOC: ANHLDR 00:32 → ANHOB2 17:06
PROVIDERS: Obstetrics & Gynecology; Admitting Provider Obstetrics & Gynecology; PCP Nurse Practitioner Family; Visit Provider Obstetrics & Gynecology
DX: O69.81X0 Labor and delivery complicated by cord around neck, without compression, not applicable or unspecified (principal); O75.2 Pyrexia during labor, not elsewhere classified; Z37.0 Single live birth; Z3A.38 38 weeks gestation of pregnancy
CPT/HCPCS: 36415; 85014; 85018; 85025; 86592; 86703; 86850; 86900; 86901; 87636; A9270; G0432; J0290; J1200; J2590; J2795; J3010; J7120